=== PATIENT | female | born 2005 | race Two or more races ===

== ENCOUNTER 2024-06-08 01:04 | Emergency (ER) | payer MEDICAID, SELFPAY ==
[2024-06-08 01:06] VITALS: BMI 36.4
[2024-06-08 01:15] VITALS: BP 110/77; PULSE 111; RESP 18; TEMP 36.9; O2SAT 98
--- NOTE | 2024-06-08 01:23 | PD.EDSKIN ---
ED Skin Abcess FB-RME/HPI General Chief complaint: Skin/Abscess/Foreign Body Stated complaint: POSSIBLE ABSCESS IN TAIL BONE AREA Time Seen by Provider: 06/08/24 01:23 Arrival date/time: 06/08/24 01:04 19 year old female present to emergency room with c/o of pain in tailbone area for 4 days. hx of pilonidal abscess. LOCATION: pilonidal SEVERITY: Symptoms are described as being severe with limitations on activities of daily living QUALITY: Symptoms are described as being dull or achy CONTEXT: The patient is unable to identify any inciting events. DURATION/TIMING: The symptoms started approximately 4 day ago and have been constant this then, and have been progressive getting worse. ASSOCIATED SYMPTOMS: The patient is unable to identify any other associated symptoms. MODIFYING FACTORS: The patient is unable to identify any alleviating or aggravating symptoms. PERTINENT ROS: denies IVDU, states no immunocompromising condition, denies any penetrating trauma, no fever, no unexplained nausea or vomiting, no headache, no chest pain REVIEW OF SYSTEMS: See History of Present Illness - with the exception of those mentioned in the history of present illness, all other systems reviewed and reported as negative GENERAL: In general the patient is awake, interactive, in an emergency department gurney. HEAD/EYES/EARS/NOSE/THROAT: normo-cephalic, atraumatic, mucus membranes are moist, anicteric, palpebral conjunctiva is pink, trachea is midline. CARDIOVASCULAR: regular rate and regular rhythm, no murmurs, heart sounds are not distant, strong pulses in all four extremities that are equal and symmetric bilateral upper and lower extremities, normal capillary refill. CHEST/PULMONARY: normal chest rise and fall, good air movement, clear to auscultation bilaterally, normal inspiratory to expiratory ratios without evidence of respiratory distress. BACK: pilonidal abscess + tenderness, noted. no perirectal involvement normal range of motion without pain. NEUROLOGICAL: cranio-facial features are symmetric, moves all four extremities equally without obvious limitations or weakness. EXTREMITY: no tenderness to palpation over the long bones or large joints of the bilateral upper and lower extremities, no joint swelling, no joint erythema, no signs of trauma, no unilateral leg swelling and no peripheral edema. SKIN: warm, dry, well-perfused, no jaundice, no rash, no telangiectasias or petechia. PSYCH: calm, cooperative, no evidence of psychosis or agitation Related Data Home Medications ?Medication ?Instructions ?Recorded ?Confirmed vitamin 1 tab PO QDAY 08/19/22 08/19/22 no.76-iron,carbonyl 29 mg iron-folic acid 1 mg tablet (Prenatabs Rx) Previous Rx's ?Medication ?Instructions ?Recorded ibuprofen 600 mg tablet 600 mg PO Q6H PRN pain #30 tabs 08/21/22 sulfamethoxazole 800 1 tab PO BID 7 days #14 tabs 06/08/24 mg-trimethoprim 160 mg tablet (Bactrim DS) Allergies Allergy/AdvReac Type Severity Reaction Status Date / Time No Known Allergies Allergy Verified 11/04/23 13:24 Course Course Course Narrative: MDM Nonseptic in appearance. Low c/f osteomyelitis or DVT. No immune compromise, bullae, pain out of proportion, or rapid progression c/f necrotizing fasciitis. ED Intervention: Patient?s abscess has been incised with acceptable resolution Rx: Bactrim?DS BID x 7 days Disposition: At this point, patient is stable for discharge, advised to follow up with primary care physician in 48 hours. Quality Measures none Orders Category Date Time Status Ibuprofen Tab [Motrin Tab] Med 06/08/24 01:28 Discontinued 800 mg PO X1 ONE Trimethoprim/Sulfa 160/800 Ds [Bactrim Ds] Med 06/08/24 01:28 Discontinued 1 tab PO X1 ONE Vital Signs Vital signs: Vital Signs Temperature 98.5 F 06/08/24 01:15 Pulse Rate 111 H 06/08/24 01:15 Respiratory Rate 18 06/08/24 01:15 Blood Pressure 110/77 06/08/24 01:15 Pulse Oximetry (%) 98 06/08/24 01:15 Oxygen Delivery Method Room Air 06/08/24 01:15 Procedures -ED Abscess I/D Site: back Local Anesthetic: lidocaine 1% Amount of anesthesia used (mL): 5 Technique: incised with #11 blade Amount of fluid expressed (mL): 10 Irrigation: Yes Packing used?: iodoform Skin / Abscess / Foreign Body Patient data External records reviewed:: None Clinical information provided by:: patient Social determinants that could affect healthcare access:: none Patient has the following chronic illnesses:: abscess How is presenting disease/condition affected by chronic disease/condition?: exacerbated by Evaluation data The following diagnostics were reviewed and interpreted by me:: other (specify) Lab and/or radiology exams considered but not ordered:: none Interpretation Summary: none Medications / Prescriptions Medications or Prescriptions considered but not ordered:: none Medication administrations:: Medication Administration History Discontinued Medications Ibuprofen (Ibuprofen Tab 400 Mg Tablet) 800 mg PO X1 ONE Stop: 06/08/24 01:29 Trimethoprim/Sulfamethoxazole (Trimethoprim/Sulfa 160/800 Ds Tablet) 1 tab PO X1 ONE Stop: 06/08/24 01:29 as stated above Consultations Consultation(s) initiated? (list below): No Diagnosis Skin/Abscess Differential Diagnosis: abscess of skin or subcutaneous tissue, cellulitis, insect bites and other Most likely diagnosis given after review of the tests above:: abscess Admission Indicated Admission indicated?: not indicated Admission Request Was there a request for admission?: No Disposition Plan Disposition Plan: Discharge Discharge Attestation Discharge Attestation: The patient and all family members were given an opportunity to ask questions and understood the discharge instructions. Discharge instructions specifically effects, indications for sooner follow up or return to the emergency department, and the expected course of current diagnosis. Patient condition: Stable Discharge Plan Plan Patient Disposition: HOME (Self Care) Health Concerns: Return in 2-3 days for packing removal Return to Ed if symptoms worsen Prescriptions/Referrals Prescriptions/Med Rec: New sulfamethoxazole-trimethoprim [Bactrim DS] 800-160 mg tablet 1 tab PO BID 7 Days Qty: 14 0RF No Action Prenatabs Rx 29 mg iron- 1 mg tablet 1 tab PO QDAY Patient Comments: Take 1 tablet by mouth once a day ibuprofen 600 mg tablet 600 mg PO Q6H PRN (Reason: pain) Qty: 30 0RF Problem List Clinical Impression: Pilonidal abscess Patient/Caregiver Discharge Instructions Education Materials: ED Cyst Pilonidal Infected IandD Print Language: Senegalese Stand Alone Forms: [employer] Award Info., Patient Portal Info Letter
[2024-06-08] MEDS: TRIMETHOPRIM/SULFA 160/800 DS TABLET 1 TAB PO (01:51)
[2024-06-08] MEDS: IBUPROFEN TAB 400 MG TABLET 800 MG PO (01:51)
== END 2024-06-08 01:57 | disposition home or self-care (01) ==
LOC: SERX 02:11
PROVIDERS: Emergency Provider Emergency Medicine; PCP Nurse Practitioner Family
DX: L05.01 Pilonidal cyst with abscess (principal)
CPT/HCPCS: 10080; 99282; 99283; A9270

== ENCOUNTER 2024-06-11 19:02 | Emergency (ER) | payer MEDICAID, SELFPAY ==
[2024-06-11 19:08] VITALS: BP 118/76; PULSE 88; RESP 18; TEMP 36.9; O2SAT 99; BMI 36.8
--- NOTE | 2024-06-11 19:17 | PD.EDSKIN ---
ED Skin Abcess FB-RME/HPI General Chief complaint: Skin/Abscess/Foreign Body Stated complaint: FOR PACKING REMOVAL (TAIL BONE) Time Seen by Provider: 06/11/24 19:17 Source: patient Arrival date/time: 06/11/24 19:02 19-year-old female with no known medical history presents to the emergency room with a chief complaint of needing to get her packing removed from a pilonidal cyst abscess that was drained 3 days ago. Mode of arrival: ambulatory Limitations: no limitations Related Data Home Medications ?Medication ?Instructions ?Recorded ?Confirmed vitamin 1 tab PO QDAY 08/19/22 08/19/22 no.76-iron,carbonyl 29 mg iron-folic acid 1 mg tablet (Prenatabs Rx) Previous Rx's ?Medication ?Instructions ?Recorded ibuprofen 600 mg tablet 600 mg PO Q6H PRN pain #30 tabs 08/21/22 sulfamethoxazole 800 1 tab PO BID 7 days #14 tabs 06/08/24 mg-trimethoprim 160 mg tablet (Bactrim DS) Allergies Allergy/AdvReac Type Severity Reaction Status Date / Time No Known Allergies Allergy Verified 06/11/24 19:03 Review of Systems Review of Systems Systems Reviewed: All systems reviewed, normal except as documented Constitutional Constitutional: Reports system reviewed and no additional complaints, except as documented, Denies fatigue, Denies fever(s), Denies headache(s) and Denies weakness Eyes Eyes: Reports system reviewed and no additional complaints, except as documented, Denies blurry vision and Denies change in vision ENT Ears, Nose, Mouth, and Throat: Reports system reviewed and no additional complaints, except as documented, Denies otalgia, Denies headache(s), Denies nasal congestion, Denies throat swelling and Denies vertigo Cardiovascular Cardiovascular: Reports system reviewed and no additional complaints, except as documented, Denies chest pain, Denies dyspnea and Denies dyspnea on exertion Respiratory Respiratory: Reports system reviewed and no additional complaints, except as documented, Denies chest congestion, Denies cough, Denies dyspnea, Denies dyspnea on exertion and Denies wheezing Gastrointestinal Gastrointestinal: Reports system reviewed and no additional complaints, except as documented, Denies abdominal pain, Denies cramping, Denies nausea and Denies vomiting Genitourinary Genitourinary: Reports system reviewed and no additional complaints, except as documented Musculoskeletal Musculoskeletal: Reports system reviewed and no additional complaints, except as documented and Denies back pain Integumentary/Breasts Skin/Breast: Reports system reviewed and no additional complaints, except as documented, Reports erythema and Reports wounds (Pilonidal cyst) Neurologic Neurologic: Reports system reviewed and no additional complaints, except as documented, Denies confusion, Denies headache(s), Denies lack of coordination, Denies vertigo and Denies weakness Psychiatric Psychiatric: Reports system reviewed and no additional complaints, except as documented, Denies anxiety, Denies confusion, Denies depression, Denies paranoia, Denies suicidal ideation and Denies tactile hallucinations Endocrine Endocrine: Reports system reviewed and no additional complaints, except as documented and Denies fatigue Hematologic/Lymphatic Hematologic/Lymphatic: Reports system reviewed and no additional complaints, except as documented and Denies lymphadenopathy Allergic/Immunologic Allergic/Immunologic: Reports system reviewed and no additional complaints, except as documented, Denies throat swelling, Denies urticaria and Denies wheezing Past Medical History Past Medical History NEUROLOGIC: Negative Neurological Disorders CARDIAC: Negative Cardiac Disorders or Congestive Heart Failure RESPIRATORY: Negative Chronic Obstructive Pulmonary Disease (COPD) GASTROINTESTINAL: Negative Gastrointestinal Disorders or Hepatitis GENITOURINARY: Negative Genitourinary Disorders or Renal Disease REPRODUCTIVE: Negative Endometriosis, Pelvic Inflammatory Disease or Previous Pregnancies MUSCULOSKELETAL: Negative Musculoskeletal Disorders ENDOCRINE: Negative Endocrine Disorders, Diabetes Mellitus Type 1 or Diabetes Mellitus Type 2 HEMATOLOGIC: Negative Blood Disorders OTHER HISTORY: Negative Hospitalization, Autoimmune Disease, Down Syndrome, Developmental Delay, Shingles, Falls, Blood Transfusions, Blood Transfusion Reaction, Anesthesia Reactions, Organ Transplant, Chemotherapy, Radiation Therapy, Hyperbaric Therapy, MRSA, VRSA, Vancomycin-Resistant Enterococci, Human Immunodeficiency Virus (HIV), Chicken Pox, Measles, Mumps, Rubella ([place] Measles), Pertussis, Clostridium Difficile or Cancer Family History FAMILY HISTORY: Positive Family Respiratory Disorders (Asthma (brother and sister)); Negative Family Psychiatric Problems, Family Cardiac Disorders, Family Gastrointestinal Problems, Family Cancer, Family Surgery or Family Anesthesia Reaction Surgical History SURGICAL: Negative Organ Transplant Social History SMOKING STATUS: Never smoker SUBSTANCE USE: does not use ED Exam General Limitations: Present no limitations General appearance: Present alert and in no apparent distress Head Head exam: Present atraumatic Eye Eye exam: Present normal appearance, PERRL and EOMI ENT ENT exam: Present normal exam, normal oropharynx and mucous membranes moist Neck Neck exam: Present normal inspection, full ROM and trachea midline Chest Chest inspection: Present normal inspection and symmetric chest wall rise Respiratory Respiratory exam: Present normal lung sounds bilaterally Cardiovascular Cardiovascular exam: Present regular rate, normal rhythm and normal heart sounds Abdominal Exam Abdominal exam: Present soft and normal bowel sounds Extremities Exam Extremities exam: Present normal inspection and full ROM Back Exam Back exam: Present normal inspection and full ROM Neurological Exam Neurological exam: Present alert, oriented X3 and CN II-XII intact Psychiatric Psychiatric exam: Present normal affect and normal mood Skin Skin exam: Present warm, dry, intact and normal color Expanded Skin Exam Type of lesion: Present abscess (Pilonidal cyst) Distribution: Present other (buttocks) Description: Present tenderness, erythematous and discharge Body image: 1. Pilonidal cyst, there is no erythema or warmth and the abscess is draining Course Quality Measures none Orders Category Date Time Status Wound Care NOW Care 06/11/24 19:16 Active Vital Signs Vital signs: Vital Signs Temperature 98.5 F 06/11/24 19:08 Pulse Rate 88 06/11/24 19:08 Respiratory Rate 18 06/11/24 19:08 Blood Pressure 118/76 06/11/24 19:08 Pulse Oximetry (%) 99 06/11/24 19:08 Oxygen Delivery Method Room Air 06/11/24 19:08 Skin / Abscess / Foreign Body MDM Narrative MDM Narrative:: 19-year-old female with no known medical history presents to the emergency room with a chief complaint of needing to get her packing removed from a pilonidal cyst abscess that was drained 3 days ago. Clinically the patient appears nontoxic and in no apparent distress. Physical examination shows a pilonidal cyst that was drained and packing was placed. There is no erythema or any signs of infection or warmth to the area. The patient is afebrile and states she has taken all her antibiotics as prescribed. Patient states she was instructed to return to the emergency room in 3 days for removal of her packing. Patient states the draining of her cyst has significantly decreased. The packing was removed and a new wound dressing was placed. Patient was discharged and educated to follow-up with primary care provider and return to the emergency room for any evidence of worsening signs or symptoms Patient data External records reviewed:: [facility] previous records Clinical information provided by:: patient Social determinants that could affect healthcare access:: none Patient has the following chronic illnesses:: No chronic illness How is presenting disease/condition affected by chronic disease/condition?: no chronic disease Evaluation data The following diagnostics were reviewed and interpreted by me:: lab results and radiology exam(s) Lab and/or radiology exams considered but not ordered:: Labs and radiology exams considered and ordered Interpretation Summary: N/A Medications / Prescriptions Medications or Prescriptions considered but not ordered:: N/A Medication administrations:: N/A Consultations Consultation(s) initiated? (list below): No Diagnosis Skin/Abscess Differential Diagnosis: abscess of skin or subcutaneous tissue, cellulitis and other (Pilonidal cyst) Most likely diagnosis given after review of the tests above:: Pilonidal cyst Admission Indicated Admission indicated?: not indicated Admission Request Was there a request for admission?: No Disposition Plan Disposition Plan: Discharge Discharge Attestation Discharge Attestation: The patient and all family members were given an opportunity to ask questions and understood the discharge instructions. Discharge instructions specifically effects, indications for sooner follow up or return to the emergency department, and the expected course of current diagnosis. Patient condition: Stable Discharge Plan Plan Patient Disposition: HOME (Self Care) Disposition Comment: Stable Prescriptions/Referrals Prescriptions/Med Rec: No Action Prenatabs Rx 29 mg iron- 1 mg tablet 1 tab PO QDAY Patient Comments: Take 1 tablet by mouth once a day ibuprofen 600 mg tablet 600 mg PO Q6H PRN (Reason: pain) Qty: 30 0RF sulfamethoxazole-trimethoprim [Bactrim DS] 800-160 mg tablet 1 tab PO BID 7 Days Qty: 14 0RF Problem List Clinical Impression: Encounter for recheck of abscess following incision and drainage Patient/Caregiver Discharge Instructions Education Materials: ED Wound Check (No Infection) Additional Instructions: Please follow-up with your primary care provider in the next 24 to 48 hours. Any evidence of worsening signs or symptoms please return to the emergency room immediately Please keep the area clean and dry. Print Language: Georgian Stand Alone Forms: [employer] Award Info., Work/School Release, Patient Portal Info Letter PA/POLICE SHIFT COMMANDER Supervising Physician PA/POLICE SHIFT COMMANDER Supervising Physician: Dr. Nolan
== END 2024-06-11 19:37 | disposition home or self-care (01) ==
LOC: SERX 19:48
PROVIDERS: Emergency Provider Emergency Medicine; PCP Nurse Practitioner Family
DX: Z48.01 Encounter for change or removal of surgical wound dressing (principal)
CPT/HCPCS: 99282

== ENCOUNTER 2024-11-01 04:23 | Emergency (ER) | payer MEDICAID, SELFPAY ==
--- NOTE | 2024-11-01 | XR_ITS ---
MRI abdomen, without contrast. MRCP Date and time of exam: November 01, 2024 at 0914 hrs. Indications: Right upper abdominal pain nausea vomiting today Technique: Multiple axial and coronal images of the abdomen have been obtained with the Siemens 1.5T MRI scanner. Images obtained included T1 weighted transverse images, T2-weighted transverse images, T2-weighted transverse images fat-suppressed, T2 weighted haste fat suppressed transverse images, T1 weighted images, in and out of phase images, T2-weighted coronal images, breath hold, T2 weighted haze coronal images as well as T2 weighted coronal thick slab images, MRCP. Findings: No intrahepatic biliary tract dilatation Multiple gallstones Gallbladder wall is not thickened although there is minimal gallbladder wall edema Common hepatic duct common bile duct normal size no stones Negative for pancreatitis Spleen not enlarged No ascites No hydronephrosis Aorta normal size Impression: Cholelithiasis Suspicious for minimal edema gallbladder wall, recommend HIDA scan follow-up No common hepatic or common bile duct stones
[2024-11-01 04:25] VITALS: BMI 38.5
[2024-11-01 04:32] VITALS: BP 107/74; PULSE 96; RESP 18; TEMP 36.7; O2SAT 97
--- NOTE | 2024-11-01 04:49 | XR_ITS ---
Examination: Abdomen sonogram, Limited Date and time of exam: November 01, 2024 0511 hours INDICATIONS: Onset of right upper abdominal pain today Technique: Real-time rivero scale transabdominal sonographic images of the upper abdomen obtained. Findings: Multiple gallstones Gallbladder wall 0.50 cm no edema Common bile duct 0.4 cm Pancreatic head 2.5 cm Liver 14.3 cm fatty infiltration no focal liver lesions Normal hepatopedal portal venous flow Patent IVC IMPRESSION: Cholelithiasis with abnormally thickened gallbladder wall, consider HIDA scan or MRCP follow-up to exclude cholecystitis
--- NOTE | 2024-11-01 04:50 | PD.EDRME ---
Rapid Medical Screening Exam E Arrival date/time: 11/01/24 04:23 19F with no significant PMH presents to ED with several days of RUQ pain and N/V. Patient denies dysuria/hematuria and vaginal bleeding. Chief Complaint: Back Pain/Injury Vital signs: Vital Signs Temperature 98.0 F 11/01/24 04:32 Pulse Rate 96 11/01/24 04:32 Respiratory Rate 18 11/01/24 04:32 Blood Pressure 107/74 11/01/24 04:32 Pulse Oximetry (%) 97 11/01/24 04:32 Oxygen Delivery Method Room Air 11/01/24 04:32
[2024-11-01] MEDS: HYDROcodone/APAP 5/325 TABLET 1 TAB PO (05:04)
[2024-11-01] MEDS: ONDANSETRON ODT 4 MG TABRAP PO (05:04)
--- NOTE | 2024-11-01 05:35 | PC.NURSE ---
PATIENT STATED SHE DID NOT WANT ADDITIONAL PAIN MEDICATION AT THIS TIME THAT SHE WILL INFORM STAFF WHEN SHE NEEDS PAIN MEDICATION.
[2024-11-01 05:59] LABS: Collection Type, Urine Clean Catch
[2024-11-01 06:03] LABS: Basophils # (Auto) 0.1 Thou/mm3 (0.0-0.2); Basophils % (Auto) 0 % (0-2.5); Eosinophils % (Auto) 0 % (0-10); Hematocrit 42.9 % (36.0-46.0); Immature Granulocytes % (Auto) 0 % (0-0); Immature Granulocytes Auto 0.05 Thou/mm3 (0.00-0.00); Lymphocytes # (Auto) 1.9 Thou/mm3 (1.0-4.8); Lymphocytes % (Auto) 12 % (10-50); Mean Corpuscular Hemoglobin 30.8 pg (25.0-35.0); Mean Corpuscular Volume 88 fL (80-100); Monocytes # (Auto) 0.5 Thou/mm3 (0.0-0.8); Monocytes % (Auto) 4 % (0-12); Neutrophils # (Auto) 12.7 Thou/mm3 (1.8-7.7); Neutrophils % (Auto) 84 % (37-80); Nucleated Red Blood Cell % 0 /100 WBC (0); Platelet Count 193 Thou/mm3 (140-440); RDW Standard Deviation 40.4 fL (36.4-46.3); Red Blood Count 4.87 Miln/mm3 (4.00-5.20); White Blood Count 15.3 Thou/mm3 (3.6-11.0)
[2024-11-01 06:04] LABS: HCG Qualitative,Urine Negative
[2024-11-01 06:10] LABS: Bilirubin,Urine Negative (Negative); Blood,Urine Negative (Negative); Clarity,Urine Turbid (Clear/Hazy); Color,Urine Yellow (Lt Yel-Yel); Culture Indicated,Urine Contaminated; Glucose, Urine Negative (Negative); Ketones,Urine Negative (Negative); Leukocyte Esterase,Urine Positive (Negative); Nitrite,Urine Negative (Negative); PH,Urine 6.5 (5.0-7.0); Protein,Urine Trace (Neg - Trace); RBC,Urine 22 /hpf (0-3); Specific Gravity,Urine 1.028 (1.001-1.035); Squamous Epithelial Cell,Urine 41 /hpf (0-5); Urobilinogen,Urine Negative mg/dL (0.0-1.0); WBC,Urine 71 /hpf (0-5)
[2024-11-01 06:24] LABS: Alanine Aminotransferase 15 U/L (10-49); Albumin, Serum 4.8 gm/dL (3.5-5.0); Albumin/Globulin Ratio 1.8 (1.2-2.2); Alkaline Phosphatase 72 U/L (46-116); Anion Gap 10 (7-16); Aspartate Amino Transferase 11 U/L (0-34); BUN/Creatinine Ratio 11 Ratio (12-20); Bilirubin,Total 0.6 mg/dL (0.3-1.2); Blood Urea Nitrogen 9 mg/dL (9-23); Calcium 9.5 mg/dL (8.3-10.6); Calcium (Corrected) 9.5 mg/dL (8.5-10.1); Carbon Dioxide 27.9 mMol/L (20.0-31.0); Chloride 104 mMol/L (98-107); Creatinine (Component) 0.8 mg/dL (0.6-1.3); Estimated Creatinine Clearance 110.7 mL/min (>60); Globulin 2.6 gm/dL (2.3-3.5); Glucose 125 mg/dL (74-106); Lipase 28 U/L (12-53); Osmolality,Calculated 282 (275-295); Potassium 4.1 mMol/L (3.4-5.1); Sodium 142 mMol/L (136-145); Total Protein 7.4 gm/dL (5.7-8.2); eGFR > 60 See Note
--- NOTE | 2024-11-01 07:46 | EDNOTE_ITS ---
ED General RME/HPI General Chief complaint: Back Pain/Injury Stated complaint: RIGHT BACK PAIN RADIATING TO ABD, VOMITING Time Seen by Provider: 11/01/24 06:48 Arrival date/time: 11/01/24 04:23 Limitations: no limitations RME / HPI RME / HPI narrative: 11/01/24 04:23 19F with no significant PMH presents to ED with several days of RUQ pain and N/V. Patient denies dysuria/hematuria and vaginal bleeding. DR. VALERA MAIN ED EVALUATION: 19 year old female presents to the Emergency Department with complaint of right flank pain radiating anteriorly. Associated symptoms include nausea but no vomiting. PMHx: Denies any PMHx, surgeries, daily medications, or known allergies. Social Hx: No tobacco, alcohol, or substance use. Related Data Home Medications ?Medication ?Instructions ?Recorded ?Confirmed vitamin 1 tab PO QDAY 08/19/2208/19 no.76-iron,carbonyl 29 mg iron-folic acid 1 mg tablet (Prenatabs Rx) Previous Rx's ?Medication ?Instructions ?Recorded ibuprofen 600 mg tablet 600 mg PO Q6H PRN pain #30 t abs 08/21/22 acetaminophen 500 mg capsule 500 mg PO Q6H PRN pain #3 0 caps 11/01/24 amoxicillin 875 mg-potassium 1 tab PO BID #14 tabs clavulanate 125 mg tablet ondansetron 4 mg disintegrating 4 mg PO Q8H PRN nausea and 11/01/24 tablet vomiting #10 tabs Allergies Allergy/AdvReac Type Severity Reaction Status Date / Time No Known Allergies Allergy Verified 11/01/24 04:24 Review of Systems Review of Systems Systems Reviewed: All systems reviewed, normal except as documented Past Medical History Family History FAMILY HISTORY: Positive Family Respiratory Disorders Social History SMOKING STATUS: Never smoker SUBSTANCE USE: does not use ED Exam General Limitations: Present no limitations General appearance: Present alert and in no apparent distress Head Head exam: Present atraumatic, normocephalic and normal inspection Eye Eye exam: Present normal appearance, PERRL and EOMI ENT ENT exam: Present normal exam, normal oropharynx and mucous membranes moist Neck Neck exam: Present normal inspection, full ROM and trachea midline Chest Chest inspection: Present normal inspection and symmetric chest wall rise Respiratory Respiratory exam: Present normal lung sounds bilaterally Cardiovascular Cardiovascular exam: Present regular rate, normal rhythm and normal heart sounds Abdominal Exam Abdominal exam: Present soft and normal bowel sounds Extremities Exam Extremities exam: Present normal inspection and full ROM Back Exam Back exam: Present normal inspection and full ROM Neurological Exam Neurological exam: Present alert, oriented X3 and CN II-XII intact Psychiatric Psychiatric exam: Present normal affect and normal mood Skin Skin exam: Present warm, dry, intact and normal color Course Quality Measures none Orders Category Date Time Status Insert IV NOW Care 11/01/24 05:52 Active MRI Screening NOW Care 11/01/24 07:28 Active MR MRCP Stat Exams 11/01/24 Completed US gall bladder Stat Exams 11/01/24 04:49 Completed CBC Stat Lab 11/01/24 05:54 Completed CMP [Comprehensive Metabolic Panel] Stat Lab 11/01/24 05:54 Completed HCG Qualitative,Urine Stat Lab 11/01/24 05:08 Completed Lipase Stat Lab 11/01/24 05:54 Completed Urinalysis, C/S if Indicated Stat Lab 11/01/24 05:08 Completed HYDROcodone*/APAP 5/325 [[place] 5/325] Med 11/01/24 04:49 Discontinued 1 tab PO X1 ONE Morphine Inj Med 11/01/24 05:52 Discontinued 5 mg IVP X1 ONE Ondansetron Inj [Zofran Inj] Med 11/01/24 05:52 Discontinued 4 mg IVP X1 ONE Ondansetron Odt [Zofran Odt] Med 11/01/24 04:49 Discontinued 4 mg PO X1 ONE Vital Signs Vital signs: Vital Signs Temperature 98.0 F 11/01/24 04:32 Pulse Rate 96 11/01/24 04:32 Respiratory Rate 18 11/01/24 04:32 Blood Pressure 107/74 11/01/24 04:32 Pulse Oximetry (%) 97 11/01/24 04:32 Oxygen Delivery Method Room Air 11/01/24 04:32 Discharge Plan Plan Patient Disposition: HOME (Self Care) Discharge Disposition comment: Need follow up HIDA scan. Avoid greasy food. Patient condition on transfer: Stable Prescriptions/Referrals Prescriptions/Med Rec: New amoxicillin-pot clavulanate 875-125 mg tablet 1 tab PO BID Qty: 14 0RF acetaminophen 500 mg capsule 500 mg PO Q6H PRN (Reason: pain) Qty: 30 0RF ondansetron 4 mg tablet,disintegrating 4 mg PO Q8H PRN (Reason: nausea and vomiting) Qty: 10 0RF No Action Prenatabs Rx 29 mg iron- 1 mg tablet 1 tab PO QDAY Patient Comments: Take 1 tablet by mouth once a day ibuprofen 600 mg tablet 600 mg PO Q6H PRN (Reason: pain) Qty: 30 0RF Referrals: Samantha Rodriguez FNP-José Luis [Primary Care Provider] - In 1 week Problem List Clinical Impression: Acute cholecystitis Patient/Caregiver Discharge Instructions Education Materials: ED Cholecystitis, Confirmed Print Language: Nepali Stand Alone Forms: [place] Drink Info., Patient Portal Info Letter MDM Clinical Information Provided by patient Medical Records Reviewed [facility] Meds/Rx Considered, not Ordered None Labs/Rad/Tests considered, not Ordered None Chronic Illness/Social Conditions Add or document further as needed: Denies any PMHx, surgeries, daily medications, or known allergies. EKG EKG not done Imaging Radiology reports / interpretation(s): Procedure(s): US gall bladder Accession Number(s): [id number] cc: Milo Luna MD; Maynor Cabello PA-C~ Examination: Abdomen sonogram, Limited Date and time of exam: November 01, 2024 0511 hours INDICATIONS: Onset of right upper abdominal pain today Technique: Real-time rivero scale transabdominal sonographic images of the upper abdomen obtained. Findings: Multiple gallstones Gallbladder wall 0.50 cm no edema Common bile duct 0.4 cm Pancreatic head 2.5 cm Liver 14.3 cm fatty infiltration no focal liver lesions Normal hepatopedal portal venous flow Patent IVC IMPRESSION: Cholelithiasis with abnormally thickened gallbladder wall, consider HIDA scan or MRCP follow-up to exclude cholecystitis Dictated By: Milo Luna MD Procedure(s): MR MRCP Accession Number(s): [id number] cc: Samantha Rodriguez; Lester Valera MD; Milo Luna MD~ MRI abdomen, without contrast. MRCP Date and time of exam: November 01, 2024 at 0914 hrs. Indications: Right upper abdominal pain nausea vomiting today Technique: Multiple axial and coronal images of the abdomen have been obtained with the Siemens 1.5T MRI scanner. Images obtained included T1 weighted transverse images, T2-weighted transverse images, T2-weighted transverse images fat-suppressed, T2 weighted haste fat suppressed transverse images, T1 weighted images, in and out of phase images, T2-weighted coronal images, breath hold, T2 weighted haze coronal images as well as T2 weighted coronal thick slab images, MRCP. Findings: No intrahepatic biliary tract dilatation Multiple gallstones Gallbladder wall is not thickened although there is minimal gallbladder wall edema Common hepatic duct common bile duct normal size no stones Negative for pancreatitis Spleen not enlarged No ascites No hydronephrosis Aorta normal size Impression: Cholelithiasis Suspicious for minimal edema gallbladder wall, recommend HIDA scan follow-up No common hepatic or common bile duct stones Dictated By: Milo Luna MD Medication Administration(s) Medication Administration History Discontinued Medications Hydrocodone Bitart/Acetaminophen (Hydrocodone/Apap 5/325 Tablet) 1 tab PO X1 ONE Stop: 11/01/24 04:50 Last Admin: 11/01/24 05:04 Dose: 1 tab Documented By: BRUNILDA Morphine Sulfate (Morphine Sulf Inj 10 Mg/Ml Vial) 5 mg IVP X1 ONE Stop: 11/01/24 05:53 Last Admin: 11/01/24 08:31 Dose: 5 mg Documented By: JUANA Ondansetron HCl (Ondansetron Odt 4 Mg Tabrap) 4 mg PO X1 ONE; Protocol Stop: 11/01/24 04:50 Last Admin: 11/01/24 05:04 Dose: 4 mg Documented By: BRUNILAD Ondansetron HCl (Ondansetron Inj 2 Mg/Ml Inj 2 Ml) 4 mg IVP X1 ONE; Protocol Stop: 11/01/24 05:53 Last Admin: 11/01/24 08:29 Dose: 4 mg Documented By: JUANA Diagnosis Differential diagnosis: Kidney stones, UTI, pyelonephritis Most likely dx, and/or detailed dx discussion: Acute cholecystitis Dispositon Disposition: Discharge Home
[2024-11-01 08:03] VITALS: BP 118/86; PULSE 83; RESP 17; TEMP 36.8; O2SAT 100
[2024-11-01] MEDS: ONDANSETRON INJ 2 MG/ML INJ 2 ML 4 MG IVP (08:29)
[2024-11-01] MEDS: MORPHINE SULF INJ 10 MG/ML VIAL 5 MG IVP (08:31)
--- NOTE | 2024-11-01 08:49 | PC.NURSE ---
PT ARRIVED TO ED FOR RUQ PAIN THAT TRAVELS TO THE BACK. PT REPORTS WAKING UP WITH THIS PAIN
[2024-11-01 10:26] VITALS: BP 110/75; PULSE 91; RESP 16; TEMP 37.3; O2SAT 100
[2024-11-01 11:49] VITALS: BP 118/76; PULSE 88; RESP 18; O2SAT 97
== END 2024-11-01 11:49 | disposition home or self-care (01) ==
PROVIDERS: Physician Assistant; Emergency Provider Emergency Medicine
DX: K80.00 Calculus of gallbladder with acute cholecystitis without obstruction (principal); K76.0 Fatty (change of) liver, not elsewhere classified
CPT/HCPCS: 36415; 76705; 80053; 81001; 81025; 83690; 85025; J2270; J2405; Q0162; S8037; 74181; A9270

== ENCOUNTER 2024-12-15 04:50 | Emergency (ER) | payer MEDICAID, SELFPAY ==
[2024-12-15 04:51] VITALS: BMI 36.9
[2024-12-15 04:54] VITALS: BP 93/63; PULSE 115; RESP 19; TEMP 37.1; O2SAT 97
--- NOTE | 2024-12-15 06:27 | EDNOTE_ITS ---
<Statement entered by Naina Capellan MD - 12/15/24 17:34> As co-signing physician, I was present and available for consult prn. I concur with the plan and care as documented by the midlevel provider. ED Skin Abcess FB-RME/HPI General Chief complaint: Skin/Abscess/Foreign Body Stated complaint: ABSCESS AT TAIL BONE AREA Time Seen by Provider: 12/15/24 05:49 Source: patient Arrival date/time: 12/15/24 04:50 19-year-old female with no known medical history presents to the emergency room with a chief complaint of a pilonidal cyst x 3 days Mode of arrival: ambulatory Limitations: no limitations Related Data Home Medications ?Medication ?Instructions ?Recorded ?Confirmed vitamin 1 tab PO QDAY 08/19/2208/19 no.76-iron,carbonyl 29 mg iron-folic acid 1 mg tablet (Prenatabs Rx) Previous Rx's ?Medication ?Instructions ?Recorded ibuprofen 600 mg tablet 600 mg PO Q6H PRN pain #30 t abs 08/21/22 acetaminophen 500 mg capsule 500 mg PO Q6H PRN pain #3 0 caps 11/01/24 amoxicillin 875 mg-potassium 1 tab PO BID #14 tabs clavulanate 125 mg tablet ondansetron 4 mg disintegrating 4 mg PO Q8H PRN nausea and 11/01/24 tablet vomiting #10 tabs sulfamethoxazole 800 1 tab PO BID #14 tabs mg-trimethoprim 160 mg tablet (Bactrim DS) Allergies Allergy/AdvReac Type Severity Reaction Status Date / Time No Known Allergies Allergy Verified 12/15/24 04:51 Review of Systems Review of Systems Systems Reviewed: All systems reviewed, normal except as documented Constitutional Constitutional: Reports system reviewed and no additional complaints, except as documented, Denies fatigue, Denies fever(s), Denies headache(s) and Denies weakness Eyes Eyes: Reports system reviewed and no additional complaints, except as documented, Denies blurry vision and Denies change in vision ENT Ears, Nose, Mouth, and Throat: Reports system reviewed and no additional complaints, except as documented, Denies otalgia, Denies headache(s), Denies nasal congestion, Denies throat swelling and Denies vertigo Cardiovascular Cardiovascular: Reports system reviewed and no additional complaints, except as documented, Denies chest pain, Denies dyspnea and Denies dyspnea on exertion Respiratory Respiratory: Reports system reviewed and no additional complaints, except as documented, Denies chest congestion, Denies cough, Denies dyspnea, Denies dyspnea on exertion and Denies wheezing Gastrointestinal Gastrointestinal: Reports system reviewed and no additional complaints, except as documented, Denies abdominal pain, Denies cramping, Denies nausea and Denies vomiting Genitourinary Genitourinary: Reports system reviewed and no additional complaints, except as documented Musculoskeletal Musculoskeletal: Reports system reviewed and no additional complaints, except as documented and Denies back pain Integumentary/Breasts Skin/Breast: Reports system reviewed and no additional complaints, except as documented and Reports wounds Neurologic Neurologic: Reports system reviewed and no additional complaints, except as documented, Denies confusion, Denies headache(s), Denies lack of coordination, Denies vertigo and Denies weakness Psychiatric Psychiatric: Reports system reviewed and no additional complaints, except as documented, Denies anxiety, Denies confusion, Denies depression, Denies paranoia, Denies suicidal ideation and Denies tactile hallucinations Endocrine Endocrine: Reports system reviewed and no additional complaints, except as documented and Denies fatigue Hematologic/Lymphatic Hematologic/Lymphatic: Reports system reviewed and no additional complaints, except as documented and Denies lymphadenopathy Allergic/Immunologic Allergic/Immunologic: Reports system reviewed and no additional complaints, except as documented, Denies throat swelling, Denies urticaria and Denies wheezing Past Medical History Past Medical History NEUROLOGIC: Negative Neurological Disorders CARDIAC: Negative Cardiac Disorders or Congestive Heart Failure RESPIRATORY: Negative Chronic Obstructive Pulmonary Disease (COPD) GASTROINTESTINAL: Negative Gastrointestinal Disorders or Hepatitis GENITOURINARY: Negative Genitourinary Disorders or Renal Disease REPRODUCTIVE: Negative Endometriosis, Pelvic Inflammatory Disease or Previous Pregnancies MUSCULOSKELETAL: Negative Musculoskeletal Disorders ENDOCRINE: Negative Endocrine Disorders, Diabetes Mellitus Type 1 or Diabetes Mellitus Type 2 HEMATOLOGIC: Negative Blood Disorders OTHER HISTORY: Negative Hospitalization, Autoimmune Disease, Down Syndrome, Developmental Delay, Shingles, Falls, Blood Transfusions, Blood Transfusion Reaction, Anesthesia Reactions, Organ Transplant, Chemotherapy, Radiation Therapy, Hyperbaric Therapy, MRSA, VRSA, Vancomycin-Resistant Enterococci, Human Immunodeficiency Virus (HIV), Chicken Pox, Measles, Mumps, Rubella (Czech Measles), Pertussis, Clostridium Difficile or Cancer Family History FAMILY HISTORY: Positive Family Respiratory Disorders; Negative Family Psychiatric Problems, Family Cardiac Disorders, Family Gastrointestinal Problems, Family Cancer, Family Surgery or Family Anesthesia Reaction Surgical History SURGICAL: Negative Organ Transplant Social History SMOKING STATUS: Never smoker SUBSTANCE USE: does not use ED Exam General Limitations: Present no limitations General appearance: Present alert and in no apparent distress Head Head exam: Present atraumatic Eye Eye exam: Present normal appearance, PERRL and EOMI ENT ENT exam: Present normal exam, normal oropharynx and mucous membranes moist Neck Neck exam: Present normal inspection, full ROM and trachea midline Chest Chest inspection: Present normal inspection and symmetric chest wall rise Respiratory Respiratory exam: Present normal lung sounds bilaterally Cardiovascular Cardiovascular exam: Present regular rate, normal rhythm and normal heart sounds Abdominal Exam Abdominal exam: Present soft and normal bowel sounds Extremities Exam Extremities exam: Present normal inspection and full ROM Back Exam Back exam: Present normal inspection and full ROM Neurological Exam Neurological exam: Present alert, oriented X3 and CN II-XII intact Psychiatric Psychiatric exam: Present normal affect and normal mood Skin Skin exam: Present warm, dry, intact and normal color Expanded Skin Exam Type of lesion: Present abscess Distribution: Present other (Gluteal cleft) Description: Present tenderness and erythematous Body image: 2 1. 2 cm erythemic pilonidal cyst Course Quality Measures none Orders Category Date Time Status Incision and Drainage Set Up X1 Care 12/15/24 06:27 Active Set Up Suture Tray STAT Care 12/15/24 06:27 Active Wound Care NOW Care 12/15/24 06:27 Active Lidocaine 1% 20 ml [Xylocaine 1% 20 ML] Med 12/15/24 06:27 Discontinued 20 ml INFL X1 ONE Vital Signs Vital signs: Vital Signs Temperature 98.8 F 12/15/24 04:54 Pulse Rate 115 H 12/15/24 04:54 Respiratory Rate 19 12/15/24 04:54 Blood Pressure 93/63 12/15/24 04:54 Pulse Oximetry (%) 97 12/15/24 04:54 Oxygen Delivery Method Room Air 12/15/24 04:54 Skin / Abscess / Foreign Body MDM Narrative MDM Narrative:: 19-year-old female with no known medical history presents to the emergency room with a chief complaint of a pilonidal cyst x 3 days Patient is hemodynamically stable and in no apparent distress. She is afebrile Physical examination shows a 2 cm erythemic pustule to the top of the gluteal cleft. The findings are consistent with a pilonidal cyst. Patient has a history of the pilonidal cyst in the same area. Patient states this is the third time but she has been unable to get a referral to a general surgeon PROCEDURE: incision and drainage of abscess PROCEDURE: A timeout protocol was performed prior to initiating the procedure. The area was prepared with Betadine and draped in the usual, sterile manner. The site was anesthetized with 1% lidocaine. A linear incision along the local skin lines was made and the purulent material expressed. The abscess was explored thoroughly and sequestered pockets were opened. Bleeding was minimal. Packing: none Followup: The patient tolerated the procedure well without complications. Standard post-procedure care is explained and patient was educated to follow-up with his primary care provider in the next 24 to 48 hours or return to the emergency room for any evidence of worsening signs or symptoms. Patient data External records reviewed:: [facility] previous records Clinical information provided by:: patient Social determinants that could affect healthcare access:: none Patient has the following chronic illnesses:: No chronic illness How is presenting disease/condition affected by chronic disease/condition?: no chronic disease Evaluation data The following diagnostics were reviewed and interpreted by me:: lab results and radiology exam(s) Lab and/or radiology exams considered but not ordered:: Labs and radiology exams considered in order Interpretation Summary: N/A Medications / Prescriptions Medications or Prescriptions considered but not ordered:: Medication given Medication administrations:: Medication Administration History Discontinued Medications Lidocaine HCl (Lidocaine Hcl 1% 20 Ml Vial) 20 ml INFL X1 ONE Stop: 12/15/24 06:28 Last Admin: 12/15/24 06:31 Dose: 20 ml Documented By: BD Medication given Consultations Consultation(s) initiated? (list below): No Diagnosis Skin/Abscess Differential Diagnosis: abscess of skin or subcutaneous tissue, cellulitis and other (Pilonidal cyst/cellulitis/abscess/) Most likely diagnosis given after review of the tests above:: Pilonidal cyst Admission Indicated Admission indicated?: not indicated Admission Request Was there a request for admission?: No Disposition Plan Disposition Plan: Discharge Discharge Attestation Discharge Attestation: The patient and all family members were given an opportunity to ask questions and understood the discharge instructions. Discharge instructions specifically effects, indications for sooner follow up or return to the emergency department, and the expected course of current diagnosis. Patient condition: Stable Discharge Plan Plan Patient Disposition: HOME (Self Care) Discharge Disposition comment: Stable Prescriptions/Referrals Prescriptions/Med Rec: New sulfamethoxazole-trimethoprim [Bactrim DS] 800-160 mg tablet 1 tab PO BID Qty: 14 0RF No Action Prenatabs Rx 29 mg iron- 1 mg tablet 1 tab PO QDAY Patient Comments: Take 1 tablet by mouth once a day ibuprofen 600 mg tablet 600 mg PO Q6H PRN (Reason: pain) Qty: 30 0RF amoxicillin-pot clavulanate 875-125 mg tablet 1 tab PO BID Qty: 14 0RF acetaminophen 500 mg capsule 500 mg PO Q6H PRN (Reason: pain) Qty: 30 0RF ondansetron 4 mg tablet,disintegrating 4 mg PO Q8H PRN (Reason: nausea and vomiting) Qty: 10 0RF Referrals: Samantha Rodriguez FNP-C [Primary Care Provider] - In 1 week Problem List Clinical Impression: Pilonidal cyst, Encounter for incision and drainage procedure Patient/Caregiver Discharge Instructions Education Materials: ED Cyst Pilonidal Infected IandD Additional Instructions: Please follow-up with your primary care provider in the next 24 to 48 hours Your pilonidal cyst was drained. Please keep it clean and dry for the next 24 hours after you can clean it with soap and water Antibiotics are sent to your pharmacy please pick them up and take them as indicated For any evidence of worsening signs or symptoms return to the emergency room immediately Print Language: Wolof Stand Alone Forms: [employer] Award Info., Work/School Release, Patient Portal Info Letter NATASHA/DAVID Supervising Physician NATASHA/DAVID Supervising Physician: Dr. CAPELLAN
[2024-12-15] MEDS: LIDOCAINE HCL 1% 20 ML VIAL INFL (06:31)
== END 2024-12-15 07:03 | disposition home or self-care (01) ==
PROVIDERS: Emergency Provider Nurse Practitioner Family
DX: L05.91 Pilonidal cyst without abscess (principal)
CPT/HCPCS: 10080; 99283; J3490